=== PATIENT | male | born 1955 | race Caucasian/White ===

== ENCOUNTER 2022-10-25 09:45 | Outpatient (RCR) | payer MEDICARE, SELFPAY ==
[2022-10-22 15:11] VITALS: BMI 34.1
[2022-10-23 09:45] VITALS: BMI 31.1
[2022-10-23] MEDS: sodium chloride 0.9% 1,000 ML 999 ML IV (10:00)
[2022-10-23] MEDS: filgrastim-sndz 300 mcg/0.5 mL Syringe SUBCUT (10:30)
[2022-10-23 10:31] VITALS: BP 128/74; PULSE 75; RESP 18; TEMP 36.1; O2SAT 97
--- NOTE | 2022-10-23 11:41 | SUR.EXTENDED ---
port deactivated to right subclavian per protocol. flushed with normal saline and covered with 2x2 and tape
[2022-10-24 09:24] VITALS: BP 119/65; PULSE 86; RESP 17; TEMP 37.1; O2SAT 96
[2022-10-24] MEDS: filgrastim-sndz 300 mcg/0.5 mL Syringe SUBCUT (09:30)
[2022-10-25 09:45] VITALS: BP 113/64; PULSE 80; RESP 18; TEMP 36.3; O2SAT 96
[2022-10-25] MEDS: filgrastim-sndz 300 mcg/0.5 mL Syringe SUBCUT (09:55)
== END 2022-11-16 23:59 | disposition home or self-care (01) ==
LOC: OPS 09:45
PROVIDERS: PCP Family Medicine; Visit Provider Internal Medicine Medical Oncology
DX: D70.1 Agranulocytosis secondary to cancer chemotherapy (principal)
CPT/HCPCS: 96360; 96372; J7030; Q5101

== ENCOUNTER 2023-03-10 14:37 | Oncology outpatient (recurring) (ONCR) | payer MEDICARE, SELFPAY ==
[2023-03-10 14:38] VITALS: BP 146/75; PULSE 71; RESP 18; TEMP 36.8; O2SAT 97
== END 2023-03-18 23:59 | disposition home or self-care (01) ==
PROVIDERS: Absent Provider Internal Medicine Medical Oncology; PCP Family Medicine; Visit Provider Internal Medicine Medical Oncology
DX: Z95.828 Presence of other vascular implants and grafts (principal)
CPT/HCPCS: 96523; J1642

== ENCOUNTER 2023-04-07 09:57 | Oncology outpatient (recurring) (ONCR) | payer MEDICARE, SELFPAY ==
--- OUTSIDE RECORDS SUMMARY | 2023-04-07 10:00 | XMS_ITS | Continuity of Care Document ---
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(Discharge Diagnosis) - 01/07/23 History of aortic valve replacement with bioprosthetic valve(Discharge Diagnosis) - 01/07/23 Hypertension, essential(Discharge Diagnosis) - 01/07/23 Lung cancer(Discharge Diagnosis) - 01/07/23 Other specified health status(Discharge Diagnosis) - 01/07/23 Encounter for screening for other disorder(Discharge Diagnosis) - 01/07/23 Attending Physician: Viet Beckwith MD Allergies, Adverse Reactions, Alerts Substance Reaction Severity Status iodinated radiocontrast dyes swelling of head/itching Severe Active Assessment and Plan Extracted from: Title:Office Visit - Comprehensive Author:Viet Ma Date:01/07/23 Ascending aortic aneurysm(Th oracic aortic aneurysm, without rupture: I71.2) 4.6??on last CT, need blood pressure better controlled?? 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 He is to call me??if he starts getting muscle aches??on this.?? He can try??Co Q10??100 mg twice??daily and vitamin D3??2000 iu daily for muscle aches History of aortic valve replacement with bioprosthetic valve(Presence of xenogenic heart valve: Z95.3) Aortic??valve??replacement stable??on last echo,??he should use antibiotics??prior??to dental cleaning? Hypertension, essential(Essential (primary) hypertension: I10) Increase lisinopril??to 20 twice??daily,??check BMP in a week? Lung cancer(Malignant neoplasm of unspecified part of unspecified bronchus or lung: C34.90) Managed??by??Dr. Webb?? Future Appointments Appointment Date:05/13/2023 01:30:00 PM Scheduled Provider:[facility] Type:Established Patient Immunizations Given and Recorded Vaccine Date Status Refusal Reason influenza virus vaccine 08/31/12 Given Medications allopurinol 300 mg oral tablet 300 mg = 1 tab, By mouth, QAM, Refill(s) 0 Start Date: 04/01/12 Status: Ordered aspirin 325 mg, By mouth, QAM, not instructed to discontinue preop., # 90 tab, Refill(s) 0 Start Date: 08/21/15 Status: Ordered Crestor 10 mg oral tablet 10 mg = 1 tab, By mouth, Daily, # 90 tab, Refill(s) 3, Pharmacy: [facility] #[id number], [id number], 1 tab By mouth Daily, 98.18, 01/07/23 14:02:00 CDT, kg, Weight Start Date: 01/07/23 Status: Ordered lisinopril 20 mg oral tablet 20 mg = 1 tab, By mouth, BID, # 180 tab, Refill(s) 3, Pharmacy: [facility] #[id number], [id number], 1 tab By mouth BID, 98.18, 01/07/23 14:02:00 CDT, kg, Weight Start Date: 01/07/23 Status: Ordered Metoprolol Tartrate 50 mg oral tablet 50 mg = 1 tab, By mouth, BID, # 180 tab, Refill(s) 4, Pharmacy: [facility] #[id number], [id number], 1 tab By mouth BID, 98.18, 01/07/23 14:02:00 CDT, kg, Weight Start Date: 01/07/23 Status: Ordered venlafaxine 75 mg oral capsule, extended release 75 mg = 1 cap, By mouth, Daily, # 90 cap, Refill(s) 5, Pharmacy: [facility] #[id number], [id number], 1 cap By mouth Daily, 70, 05/22/20 13:18:00 CDT, in, 105.5, 05/22/20 13:18:00 CDT, kg, Weight Start Date: 05/22/20 Status: Ordered Ventolin HFA 90 mcg/inh inhalation aerosol = 2 puff, Inhalation, Q6H, PRN dyspnea, # 1 EA, Refill(s) 11, Pharmacy: [facility] [id number], 2 puff Inhalation Q6H,PRN:dyspnea Start Date: 09/07/18 Status: Ordered Viagra 50 mg oral tablet 50 mg = 1 tab, By mouth, Daily, PRN for erectile dysfunction, # 15 tab, Refill(s) 5, Pharmacy: [facility] #[id number], [id number], 1 tab By mouth Daily,PRN:for erectile dysfunction, 70, 10/17/19 13:39:00 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 Villanueva, 05/26/2017 2Coronary bypass grafting x1 with a saphenous vein graft to the obtuse marginal. (05/20/2017, Dr Villanueva) 3Replacement of aortic valve with a 23 bioprosthetic tissue valve., Dr. Villanueva, 05/25/2017 (bicuspid valve). Procedures Procedure Date Related Diagnosis Body Site Status Bronchoscopy 1 08/30/22 Completed Bronchoscopy Robot Assisted - Endo with Anes 2 08/30/22 Completed Colonoscopy 3 12/05/18 Completed removed top lobe of lung 05/15/18 Completed CABG 05/20/17 Completed coronary angiogram, SERGE 05/19/17 C ompleted Colonoscopy - Endo 4 11/30/16 Comp leted Right illiac stent 01/23/15 Comple grace stent in right lower ext. 2014 Completed Hernia repair 5 08/30/12 Completed Partial resection of colon 03/2012 Completed Colonoscopy 2011 Completed Arthroscopy of knee 1997 Com pleted tumor from jaw removed 1989 Co mpleted 1auto-populated from documented surgical case 2auto-populated from documented surgical case 3auto-populated from documented surgical case 4auto-populated from documented surgical case 5incisional 6right Vital Signs Most recent to oldest [Reference Range]: 1 Blood Pressure 168/80 (01/07/23 1:59 PM) Height (inches) (Clinical) 67 in (01/07/23 1:59 PM) Weight (kg) (Clinical) 98.18 kg (01/07/23 1:59 PM) BMI (Clinical) 33.8 kg/m2 (01/07/23 1:59 PM) Social History Social History Type Response Smoking Status Former smoker; Smoke less tobacco use: Smokeless tobacco user within last 30 days; Former smoker last 30 days Former smoker > 30 days; Has the patient smoked in the last 365 days, even once? No; Type: Chewing tobacco; 2nd hand smoke exposure. No; Ready to change: No 1 entered on: 08/24/22 Sex Male 1CHEW OSWALDO LOOSE LEAF CHEWING TOBACCO. 1 POUCH EVERY 2 DAYS. Implantable Device List Procedure Provider Procedure Date Device Type Site Insertion Central Access Catheter Unknown 09/29/22 Unknown Internal Jugular , Right Device Identifier Serial Number Lot or Batch Number Manufacturing Date Expiration Date Distinct Identification Code MRI Safety Implantable Status Assigning Authority [id number] Unknown [id number] Unknown 12/18/23 Unknown MR Safe Active GS1 Procedure Provider Procedure Date Device Type Site Not MRI eligible Unknown 09/19/16 Unknown Unknown Device Identifier Serial Number Lot or Batch Number Manufacturing Date Expiration Date Distinct Identification Code MRI Safety Implantable Status Assigning Authority Unknown Unknown Unknown Unknown Unknown Unknown MR Unsafe Active Unknown Cardiology Outpatient Note * Tang RICHARDS, Viet Mar: PERFORM Event Display: Cardiology Office/Clinic Note Authored Date: [id number] Chief Complaint Annual, SOB, fatigue, edema General Information Information Given By: Patient (01/07/23 13:59:00) Nurse Intake Nursing Intake?? General Information?? Pain Information?? Physicians and Specialties: Dr Kristopher Sam - PCP ??in [facility]. Viet Beckwith-CardiologistDrMarcio Laughlin - Cardiothoracic surgeonDrMarcio Webb - OncologistDrMarcio Amato - Vascular surgeonDrMarcio Saini- general surgeonDrMarcio Hunter- radiation (01/07/23) Pain Present: No actual or suspected pain (01/07/23) Information Given By: Patient (01/07/23) ?? History of Present Illness In??patient is here??for??follow-up.?? He has a history??of coronary??disease??aortic??valve replacement??and repair??of the ascending??aorta. ??He has lung??cancer and is managed by??Dr. Webb, recently finished chemotherapy. ??He has chronic dyspnea.?? He has had lung??cancer in his??had S lung resected.?? He also??has neuropathy in his legs. ??He??he quit??smoking??in 17, also has??had gout inthe past.?? Review of Systems Review of Systems General: Denies fevers, chills, sweats, anorexia,?? malaise, weight loss. Cardiovascular: Denies chest pains, palpitations, syncope, orthopnea, PND, peripheral edema. Respiratory: Denies cough,?? excessive sputum, hemoptysis, wheezing. Gastrointestinal: Denies nausea, vomiting, abdominal pain, jaundice. Musculoskeletal: Denies back pain, joint pain, joint swelling, stiffness, arthritis. Neurologic: neuropathy Psychiatric: denies history Endocrine: Denies polydipsia, polyuria. Heme/Lymphatic: Denies abnormal bruising, bleeding, enlarged lymph nodes. All other systems were negative or not pertinent Physical Exam Vitals & Measurements HR:??74?? BP:??168/80?? HT:??67??in?? WT:??98.18??kg?? WT:??216??lb?? BMI:??33.8?? GENERAL APPEARANCE: In no acute distress. Alert & oriented. Behavior and affect appropriate to situation. NECK: No jugular venous distension. Carotid upstrokes are within normal limits. No carotid bruits. CARDIO: Regular rate and rhythm. 2/6 sm. PMI is non displaced. VASCULAR: No clubbing or cyanosis. Pedal pulses normal in amplitude and equal bilaterally. No extremity pitting edema. RESPIRATORY : Respirations even and unlabored. Lungs clear to auscultation. No rhonchi. No crackles. No wheezing. ABDOMINAL: Soft abdomen without masses or tenderness. No hepatosplenomegaly. Bowel sounds present. SKIN: Warm and dry. No ecchymosis or petechiae noted. Skin turgor normal for age. Assessment/Plan Ascending aortic aneurysm(Thoracic aortic aneurysm, without rupture: I71.2) 4.6??on last CT, need blood pressure better controlled?? 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 He is to call me??if he starts getting muscle aches??on this.?? He can try??Co Q10??100 mg twice??daily and vitamin D3??2000 iu daily for muscle aches History of aortic valve replacement with bioprosthetic valve(Presence of xenogenic heart valve: Z95.3) Aortic??valve??replacement stable??on last echo,??he should use antibiotics??prior??to dental cleaning? Hypertension, essential(Essential (primary) hypertension: I10) Increase lisinopril??to 20 twice??daily,??check BMP in a week? Lung cancer(Malignant neoplasm of unspecified part of unspecified bronchus or lung: C34.90) Managed??by??Dr. Webb?? Problem List/Past Medical History Ascending aortic aneurysm: ??Resection and replacement of ascending aortic aneurysm with a [address] Villanueva, 05/26/2017 COPD with asthma: ?? ATHEROSCLEROSIS OF AORTA: ?? 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 CAD in [place] artery: ??Coronary bypass grafting x1 with a saphenous vein graft to the obtuse marginal. (05/20/2017, Dr Villanueva) Erectile dysfunction: ?? Hypertension, essential: ?? History of aortic valve replacement with bioprosthetic valve: ??Replacement of aortic valve with a 23 bioprosthetic tissue valve., Dr. Villanueva, 05/25/2017 (bicuspid valve). Lung cancer: ?? Neuropathy: ?? COPD type A: ?? Procedure/Surgical History ???Bronchoscopy (08/30/2022)???Bronchoscopy Robot Assisted - Endo with Anes (08/30/2022)???Colonoscopy (12/05/2018)???removed top lobe of lung (05/15/2018)???CABG (05/20/2017)???coronary angiogram, SERGE (05/19/2017)???Colonoscopy - Endo (11/30/2016)???Right illiac stent (01/23/2015)???stent in rightlower ext. (2014)???Hernia repair (08/30/2012)???Partial resection of colon ()???Colonoscopy (2011)???Arthroscopy of knee (1997)???tumor from jaw removed (1989) Medications Home Medications (8) Active allopurinol 300 mg oral tablet??300 mg = 1 tab,Start_date: 04/01/12,Refills: 0, By mouth, QAM aspirin??325 mg,Start_date: 08/21/15,Refills: 0, By mouth, QAM atorvastatin 40 mg oral tablet??See Instructions:TAKE 1 TABLET BY MOUTH EVERY EVENING,Start_date: 11/25/20,Refills: 4 lisinopril 20 mg oral tablet??20 mg = 1 tab,Start_date: 02/17/21,Refills: 3, By mouth, Daily Metoprolol Tartrate 50 mg oral tablet??See Instructions:TAKE 1 TABLET BY MOUTH TWICE DAILY NEEDS APPOINTMENT FOR FURTHER REFILLS,Start_date: 10/04/22,Refills: 0 venlafaxine 75 mg oral capsule, extended release??75 mg = 1 cap,Start_date: 05/22/20,Refills: 5, [place], Daily Ventolin HFA 90 mcg/inh inhalation aerosol??2 puff,Start_date: 09/07/18,Refills: 11, PRN, Inhalation, Q6H Viagra 50 mg oral tablet??50 mg = 1 tab,Start_date: 10/17/19,Refills: 5, PRN, By mouth, Daily Allergies iodinated radiocontrast dyes??(swelling of head/itching) Social History Alcohol Current, Several times per day Employment/School Highest education level: High school. Status: On Disability. Exercise Frequency: None. Home/Environment Marital status . 2 children. Seatbelt use: Never. Lives with: Spouse. Nutrition/Health Type of diet: No Diet Restrictions. Caffeine intake amount: 1-2 drinks/day. Type of caffeine drinks: Coffee. Calcium intake: Adequate Intake. Sun exposure: Frequently - w/o sunscreen. Substance Abuse Denies Tobacco Smoking Status: Former smoker. Smokeless tobacco use: Smokeless tobacco user within last 30 days. Former smoker last 30 days: Former smoker > 30 days. Has the patient smoked in the last 365 days, even once? No. Type: Chewing tobacco. 2nd hand smoke exposure: No. Ready to change: No. Family History Heart disease: MOTHER. Hypertension: FATHER. Lab Results Creatinine 1.42 mg/dL 11/03/2022 10:23 PHLEBOTOMY INSTRUCTOR (High) Normal left ventricular cavity size. ??There is moderately increased left ? ventricular wall thickness. ??The left ventricular systolic function is ? normal. ??The visually estimated ejection fraction is between 65-70%. ??E/E ? prime ratio is >15, consistent with elevated filling pressures. ? - bioprosthetic aortic valve is present. ??The prosthetic aortic valve appears?? to be functioning normally. ??The peak aortic gradient is 27.00 mmHg.The mean ?? gradient is 11.00 mmHg. ??There is no aortic valve regurgitation. ? - The aorta was not well visualized. ??Moderate dilatation of the aortic root ?? measuring 4.60 cm and moderate dilatation of the ascending aorta measuring ? 4.60 cm. ??ascending aorta repaired with 3.8 cm graft not well visualized, ? Evaluation of aorta ??with CT scan for better evaluation ? [1] . ??Postsurgical changes of the ascending thoracic aorta reconstruction with aortic valve replacement are redemonstrated. The ascending aorta measures up to 4.6 cm in diameter. ?? Other incidental/non-acute findings are as described above.? Electronically signed by: Dr Troy Carbajal ??08/30/2022 10:12 AM ?? Signature Line ? Troy Carbajal MD Signed ? 08/30/22 10:12:10 (Electronic Signature) [2] [1]??ECHO Adult Complete; Viet Beckwith MD 08/17/2021 12:48 PHLEBOTOMY INSTRUCTOR [2]??CT Chest wo Contrast; Troy Carbajal MD 08/30/2022 09:59 PHLEBOTOMY INSTRUCTOR Electronically signed by:Viet Beckwith MD 01/07/23 15:11 Patient Care team information Care Team Personnel Name: Matt Webb MD Position: PX Physician - Oncologist Member Role: Oncologist Address: Address: [facility] [place] [address]- [place] Name: Kristopher Sam MD Position: 2 Restricted Providers Member Role: Primary Care Physician Address: Address: [address] [place] [address] [place] [address]- Name: Viet Beckwith MD Position: PX Physician - Cardiology Med Service: Cardiology Member Role: Attending Physician Address: Address: [address] [place] [address]- Care Team Related Persons Name: NIRAJ GUY Address: home Name: RADHA GUY Address: home
--- OUTSIDE RECORDS SUMMARY | 2023-04-07 10:00 | XMS_ITS | Continuity of Care Document ---
Author Name Unknown Organization [facility] Address [address] [place] [address]- Care Team Providers Care Supplemental Manager Name Role Phone Flaco RICHARDS, Kristopher Hernandez Primary Care Physician [phone] Encounter [facility] Financial Number [id number] Date(s): 01/07/23 - 01/08/23 [facility] [address] [address]- Attending Physician: Viet Beckwith MD Allergies, Adverse Reactions, Alerts Substance Reaction Severity Status iodinated radiocontrast dyes swelling of head/itching Severe Active Assessment and Plan Future Appointments Appointment Date:05/13/2023 01:30:00 PM Scheduled Provider:Kunal Hunter MD Location:[facility] Appointment Type:Established Patient Immunizations Given and Recorded [...] Daily, # 90 tab, Refill(s) 3, Pharmacy: [facility] #[id number], [id number], 1 tab By mouth Daily, 98.18, 01/07/23 14:02:00 CDT, kg, Weight Start Date: 01/07/23 Status: Ordered lisinopril 20 mg oral tablet 20 mg = 1 tab, By mouth, BID, # 180 tab, Refill(s) 3, Pharmacy: [facility] #[id number], [id number], 1 tab By mouth BID, 98.18, 01/07/23 14:02:00 CDT, kg, Weight Start Date: 01/07/23 Status: Ordered Metoprolol Tartrate 50 mg oral tablet 50 mg = 1 tab, By mouth, BID, # 180 tab, Refill(s) 4, Pharmacy: [facility] #[id number], [id number], 1 tab By mouth BID, 98.18, 01/07/23 14:02:00 CDT, kg, Weight Start Date: 01/07/23 Status: Ordered venlafaxine 75 mg oral capsule, extended release 75 mg = 1 cap, By mouth, Daily, # 90 cap, Refill(s) 5, Pharmacy: [facility] #[id number], [id number], 1 cap By mouth Daily, 70, 05/22/20 13:18:00 CDT, in, 105.5, 05/22/20 13:18:00 CDT, kg, Weight Start Date: 05/22/20 Status: Ordered Ventolin HFA 90 mcg/inh inhalation aerosol = 2 puff, Inhalation, Q6H, PRN dyspnea, # 1 EA, Refill(s) 11, Pharmacy: [facility] [id number], 2 puff Inhalation Q6H,PRN:dyspnea Start Date: 09/07/18 Status: Ordered Viagra 50 mg oral tablet 50 mg = 1 tab, By mouth, Daily, PRN for erectile dysfunction, # 15 tab, Refill(s) 5, Pharmacy: [facility] #[id number], [id number], 1 tab By mouth Daily,PRN:for erectile dysfunction, 70, 10/17/19 13:39: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 Start Date: 10/17/19 Status: Ordered Problem List Condition Confirmation Course Effective Dates Status Health Status Informant Ascending aortic aneurysm 1 Confirmed Active COPD with asthma Confirmed Active ATHEROSCLEROSIS OF AORTA Confirmed Active ATHEROSCLEROSIS OF [place] ARTERIES OF THE EXTREMITIES WITH INTERMITTENT CLAUDICATION Confirmed Active CAD in [place] artery 2 Confirmed Active Erectile dysfunction Confirmed [...] 4auto-populated from documented surgical case 5incisional 6right Social History Social History Type Response Smoking [...] Code MRI Safety Implantable Status Assigning Authority [id number] Unknown [id number] Unknown 12/18/23 Unknown MR Safe Active GS1 Procedure Provider Procedure Date Device Type Site Not MRI eligible Unknown 09/19/16 Unknown Unknown Device Identifier Serial Number Lot or Batch Number Manufacturing Date Expiration Date Distinct Identification Code MRI Safety Implantable Status Assigning Authority Unknown Unknown Unknown Unknown Unknown Unknown MR Unsafe Active Unknown Patient Care team information Care Team Personnel Name: Jon RICHARDS, Matt Kovacs Position: PX Physician - Oncologist Member Role: Oncologist Address: Address: [address] [place] [address]- Name: Kristopher Sam MD Position: 2 Restricted Providers Member Role: Primary Care Physician Address: Address: [address] [place] [address]- Care Team Related Persons Name: NIRAJ GUY Address: home Name: RADHA GUY Address: home
--- OUTSIDE RECORDS SUMMARY | 2023-04-07 10:00 | XMS_ITS | Continuity of Care Document ---
Author Name Unknown Organization [facility] Address [address] 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 Role Phone Flaco RICHARDS, Kristopher Hernandez Primary Care Physician Encounter [employer] Number [id number] Date(s): 11/03/22 - 11/05/22 [facility] [address] [place] [address]- Attending Physician: Matt Webb MD Admitting Physician: Referring, DR Hollis Allergies, Adverse Reactions, Alerts Substance Reaction Severity Status iodinated radiocontrast dyes swelling of head/itching Severe Active Assessment and Plan Future Appointments Appointment Date:12/01/2022 11:40:00 AM Scheduled Provider:Alea Clark Location:-Cardio Sp Appointment Type:Established Patient Appointment Date:01/07/2023 01:15:00 PM Scheduled Provider:Kunal Hunter MD Location: RadTherapy [facility] Appointment Type:Established Patient Immunizations Given and Recorded Vaccine Date Status Refusal Reason influenza virus vaccine 08/31/12 Given Medications allopurinol 300 mg oral tablet 300 mg = 1 tab, By mouth, QAM, Refill(s) 0 Start Date: 04/01/12 Status: Ordered aspirin 325 mg, By mouth, QAM, not instructed to discontinue preop., # 90 tab, Refill(s) 0 Start Date: 08/21/15 Status: Ordered atorvastatin 40 mg oral tablet See Instructions, TAKE 1 TABLET BY MOUTH EVERY EVENING, # 90 tab, Refill(s) 4, Pharmacy: [facility] #[id number], [id number], Instructions Replace Required Details, TAKE1 TABLET BY MOUTH EVERY EVENING, 70, 11/25/20 11:02... 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 Start Date: 10/04/22 Status: Ordered venlafaxine 75 mg oral capsule, extended release 75 mg = 1 cap, By mouth, Daily, # 90 cap, Refill(s) 5, Pharmacy: [facility] #[id number], [id number], 1 cap By mouth Daily, 70, 05/22/20 13:18:00 CDT, in, 105.5, 05/22/20 13:18:00 CDT, kg, Weight Start Date: 05/22/20 Status: Ordered Ventolin HFA 90 mcg/inh inhalation aerosol = 2 puff, Inhalation, Q6H, PRN dyspnea, # 1 EA, Refill(s) 11, Pharmacy: [facility] [id number], 2 puff Inhalation Q6H,PRN:dyspnea Start Date: 09/07/18 Status: Ordered Viagra 50 mg oral tablet 50 mg = 1 tab, By mouth, Daily, PRN for erectile dysfunction, # 15 tab, Refill(s) 5, Pharmacy: [facility] #[id number], [id number], 1 tab By mouth Daily,PRN:for erectile dysfunction, 70, 10/17/19 13:39:00 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 Erectile dysfunction Confirmed [...] 4auto-populated from documented surgical case 5incisional 6right Results Laboratory List Name Date CMP 11/03/22 Most recent to oldest [Reference Range]: 1 Anion Gap [2-15 mEq/L] 8 mEq/L (11/03/22 10:23 AM) Glucose, Serum/Plasma [70-100 mg/dL] 133 mg/dL *HI* (11/03/22 AM) Sodium [136-145 mEq/L] 136 mEq/L (11/03/22 AM) Potassium [3.5-5.1 mEq/L] 4.3 mEq/L (11/03/22 AM) Chloride [98-107 mEq/L] 105 mEq/L (11/03/22 AM) CO2 [21-32 mEq/L] 23 mEq/L (11/03/22 AM) BUN [7-18 mg/dL] 42 mg/dL *HI* (11/03/22 AM) Creatinine [0.67-1.17 mg/dL] 1.42 mg/dL *HI* (11/03/22 AM) Bilirubin, Total [0.2-1.0 mg/dL] <0.2 mg /dL (11/03/22: AM) Calcium [8.3-10.6 mg/dL] 8.6 mg/dL (11/03/22 AM) Protein Total [6.4-8.5 g/dL] 6.8 g/dL (11/03/22: AM) Albumin [3.4-5.0 g/dL] 3.2 g/dL *LOW* (11/03/22 AM) AST [15-37 U/L] 17 U/L (11/03/22 AM) Alk Phos [45-117 U/L] 62 U/L (11/03/22 AM) ALT [10-49 U/L] 20 U/L (11/03/22 AM) eGFR [>=60 mL/min/1.73 m2] 50 mL/min/1.7 3 m2 *LOW* (11/03/22 AM) eGFR if [>=60 mL/min/1. 73 m2] 60 mL/min/1.73 m2 (11/03/22: AM) Social History Social History Type Response Smoking [...] Code MRI Safety Implantable Status Assigning Authority [id number] Unknown [id number] Unknown 12/18/23 Unknown MR Safe Active [...] - Oncologist Member Role: Oncologist Address: Address: [address] [place] [address] Name: Kristopher Sam MD Position: 2 Restricted Providers Member Role: Primary Care Physician Address: Address: [address] [place] [address] Name: Matt Webb MD Position: PX Physician - Oncologist Med Service: Hematology & Oncology Member Role: Ordering Physician Address: Address: [address] [place] [address] Care Team Related Persons Name: NIRAJ GUY Address: home Name: NIRAJ GUY Address: home Name: RADHA GUY Address: home
--- OUTSIDE RECORDS SUMMARY | 2023-04-07 10:00 | XMS_ITS | Continuity of Care Document ---
Author Name Unknown Organization [facility] Address [address] 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 Phone Kristopher Sam MD Primary Care Physician [phone] Encounter [employer] Number [id number] Date(s): 01/07/23 - 01/09/23 [facility] [address] [place] [address]- Attending Physician: Kunal Hunter MD Allergies, Adverse Reactions, Alerts Substance Reaction Severity Status iodinated radiocontrast dyes swelling of head/itching Severe Active Assessment and Plan Future Appointments Appointment Date:05/13/2023 01:30:00 PM Scheduled Provider:Kunal Hunter MD Location:[facility] Appointment Type:Established Patient Immunizations Given and Recorded [...] Daily, # 90 tab, Refill(s) 3, Pharmacy: [facility] #[id number], [id number], 1 tab By mouth Daily, 98.18, 01/07/23 14:02:00 CDT, kg, Weight Start Date: 01/07/23 Status: Ordered lisinopril 20 mg oral tablet 20 mg = 1 tab, By mouth, BID, # 180 tab, Refill(s) 3, Pharmacy: [facility] #[id number], [id number], 1 tab By mouth BID, 98.18, 01/07/23 14:02:00 CDT, kg, Weight Start Date: 01/07/23 Status: Ordered Metoprolol Tartrate 50 mg oral tablet 50 mg = 1 tab, By mouth, BID, # 180 tab, Refill(s) 4, Pharmacy: [email or web address] #[id number], [id number], 1 tab By mouth BID, 98.18, 01/07/23 14:02:00 CDT, kg, Weight Start Date: 01/07/23 Status: Ordered venlafaxine 75 mg oral capsule, extended release 75 mg = 1 cap, By mouth, Daily, # 90 cap, Refill(s) 5, Pharmacy: [email or web address] #[id number], [id number], 1 cap By mouth Daily, 70, 05/22/20 13:18:00 CDT, in, 105.5, 05/22/20 13:18:00 CDT, kg, Weight Start Date: 05/22/20 Status: Ordered Ventolin HFA 90 mcg/inh inhalation aerosol = 2 puff, Inhalation, Q6H, PRN dyspnea, # 1 EA, Refill(s) 11, Pharmacy: [facility] [id number], 2 puff Inhalation Q6H,PRN:dyspnea Start Date: 09/07/18 Status: Ordered Viagra 50 mg oral tablet 50 mg = 1 tab, By mouth, Daily, PRN for erectile dysfunction, # 15 tab, Refill(s) 5, Pharmacy: [facility] #[id number], [id number], 1 tab By mouth Daily,PRN:for erectile dysfunction, 70, 10/17/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
--- OUTSIDE RECORDS SUMMARY | 2023-04-07 10:00 | XMS_ITS | Continuity of Care Document ---
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 Phone Kristopher Sam MD Primary Care Physician Encounter 10/19/22 - 10/20/22 [facility] [address] [place] [address]- [place] Attending Physician: Viet Beckwith MD Allergies, Adverse Reactions, Alerts Substance Reaction Severity Status iodinated radiocontrast dyes swelling of head/itching Severe Active Assessment and Plan Future Appointments Appointment Date:11/02/2022 11:20:00 AM Scheduled Provider:Isaak Saini MD Location: Breast Surg Appointment Type:Established Patient Appointment Date:01/07/2023 01:15:00 PM Scheduled Provider:Kunal Hunter MD Location:S [facility] Appointment Type:Established Patient Immunizations Given [...] EVENING, # 90 tab, Refill(s) 4, Pharmacy: [facility] #[id number], [id number], Instructions Replace Required Details, TAKE1 TABLET BY MOUTH EVERY EVENING, 70, 11/25/20 11:02... 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 Start Date: 10/04/22 Status: Ordered venlafaxine 75 mg oral capsule, extended release 75 mg = 1 cap, By mouth, Daily, # 90 cap, Refill(s) 5, Pharmacy: [facility] #[id number], [id number], 1 cap By mouth Daily, 70, 05/22/20 13:18:00 CDT, in, 105.5, 05/22/20 13:18:00 CDT, kg, Weight Start Date: 05/22/20 Status: Ordered Ventolin HFA 90 mcg/inh inhalation aerosol = 2 puff, Inhalation, Q6H, PRN dyspnea, # 1 EA, Refill(s) 11, Pharmacy: [facility] [id number], 2 puff Inhalation Q6H,PRN:dyspnea Start Date: 09/07/18 Status: Ordered Viagra 50 mg oral tablet 50 mg = 1 tab, By mouth, Daily, PRN for erectile dysfunction, # 15 tab, Refill(s) 5, Pharmacy: [facility] #[id number], [id number], 1 tab By mouth Daily,PRN:for erectile dysfunction, 70, 10/17/19 13:39:00 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 Erectile dysfunction Confirmed [...] Code MRI Safety Implantable Status Assigning Authority [id number] Unknown [id number] Unknown 12/18/23 Unknown MR Safe Active [...] Member Role: Oncologist Address: Address: [address] [place] [address]- Name: Kristopher Sam MD Position: 2 Restricted Providers Member Role: Primary Care Physician Address: Address: [address] [place] [address]- Name: Viet Beckwith MD Position: PX Physician - Cardiology Med Service: Cardiology Member Role: Attending Physician Address: Address: [address] [place] [address]- Care Team Related Persons Name: NIRAJ GUY Address: home Name: NIRAJ GUY Address: home Name: RADHA GUY Address: home
[2023-04-07 10:21] VITALS: BP 111/74; PULSE 70; RESP 18; TEMP 36.6; O2SAT 98
== END 2023-04-18 23:59 | disposition home or self-care (01) ==
LOC: ONCMED 09:58
PROVIDERS: Absent Provider Internal Medicine Medical Oncology; PCP Family Medicine; Visit Provider Internal Medicine Medical Oncology
DX: Z45.2 Encounter for adjustment and management of vascular access device (principal)
CPT/HCPCS: 96523; J1642

== ENCOUNTER 2023-06-23 13:29 | Oncology outpatient (recurring) (ONCR) | payer MEDICARE, SELFPAY | END 2023-07-19 23:59 | disposition home or self-care (01) | PROVIDERS: Absent Provider Internal Medicine Medical Oncology; PCP Family Medicine; Visit Provider Internal Medicine Medical Oncology | DX: Z45.2 Encounter for adjustment and management of vascular access device (principal); Z53.9 Procedure and treatment not carried out, unspecified reason | CPT/HCPCS: 96523; J1642 ==

== ENCOUNTER 2023-07-27 14:25 | Oncology outpatient (recurring) (ONCR) | payer MEDICARE, SELFPAY ==
[2023-07-27 14:38] VITALS: BP 128/75; PULSE 77; RESP 16; TEMP 36.9; O2SAT 95
== END 2023-08-18 23:59 | disposition home or self-care (01) ==
PROVIDERS: Absent Provider Internal Medicine Medical Oncology; PCP Family Medicine; Visit Provider Radiology Radiation Oncology
DX: Z45.2 Encounter for adjustment and management of vascular access device (principal)
CPT/HCPCS: 96523; J1642

== ENCOUNTER 2023-09-01 13:51 | Oncology outpatient (recurring) (ONCR) | payer MEDICARE, SELFPAY | END 2023-09-18 23:59 | disposition home or self-care (01) | LOC: ONCMED 13:52 | PROVIDERS: Absent Provider Internal Medicine Medical Oncology; PCP Family Medicine; Visit Provider Radiology Radiation Oncology | DX: Z45.2 Encounter for adjustment and management of vascular access device (principal) | CPT/HCPCS: 96523; J1642 ==